=== PATIENT | male | born 1930 | race Caucasian/White ===

== ENCOUNTER 2019-12-20 17:28 | Observation (INO) | payer MEDICARE ==
[~2019-12-20 17:28] MED LIST: Iopamidol-370 76% 500 ML 1 ML ONE
--- NOTE | 2019-12-20 19:00 | RAD ---
Portable frontal chest radiograph: 12/20/2019 COMPARISON: None HISTORY: Vision problems FINDINGS: Lungs are clear. Heart and mediastinal contours appear within normal limits. IMPRESSION: No acute findings.
[2019-12-20 19:04] LABS: #Basophils 0.1 thou/uL (0.0-0.2); #Eosinphils 0.1 thou/uL (0.0-0.7); #Monocytes 0.6 thou/uL (0.11-0.59); #Neutrophils 5.7 thou/uL (1.40-6.50); %Basophils 0.8 % (0.0-1.0); %Eosinophils 0.7 % (0.0-10.0); %Lymphocytes 13.6 % (21.0-51.0); %Monocytes 8.4 % (0.0-10.0); %Neutrophils 76.5 % (42.0-75.0); Hemoglobin 16.3 g/dL (14.0-18.0); Mean Corpuscular Hemoglobin 33.3 pg (27.0-31.0); Mean Corpuscular Volume 97.8 fL (78.0-98.0); Mean Platelet Volume 8.7 fL (7.4-10.4); Platelet Count 168 thou/uL (130-400); RBC Distribution Width 11.8 % (11.5-14.5); Red Blood Cell (RBC) Count 4.89 mill/uL (4.70-6.10); White Blood Cell (WBC) Count 7.5 thou/uL (4.8-10.8)
--- NOTE | 2019-12-20 19:10 | CT ---
Head CT without contrast 12/20/2019: Comparison: None HISTORY: Vision problems TECHNIQUE: Axial CT imaging at 5 mm intervals from vertex through skull base without contrast FINDINGS: The visualized paranasal sinuses and mastoid air cells demonstrate mild mucosal thickening of the left maxillary sinus. No displaced calvarial fracture. Mild diffuse cerebral volume loss. No intracranial hemorrhage, midline shift, or mass effect. IMPRESSION: No acute findings.
[2019-12-20 19:28] LABS: ALT (SGPT) 22 U/L (8-55); AST (SGOT) 24 U/L (5-34); Albumin 4.5 g/dL (3.4-4.8); Alkaline Phosphatase 67 U/L (40-110); Anion Gap 11 mmol/L (10-20); BUN (Urea Nitrogen) 17 mg/dL (8.4-25.7); Bilirubin, Total 0.5 mg/dL (0.2-1.2); Calc. Creatinine Clearance 0 mL/min (70-130); Calcium 9.3 mg/dL (7.8-10.44); Carbon Dioxide 27 mmol/L (23-31); Chloride 105 mmol/L (98-107); Estimated GFR-MDRD 55; Globulin 2.3 g/dL (2.4-3.5); Glucose 130 mg/dL (83-110); Protein, Total 6.8 g/dL (5.8-8.1); Sodium 139 mmol/L (136-145)
[2019-12-20] MEDS ORDERED: Aspirin 325 MG TAB ONE (22:29)
--- NOTE | 2019-12-20 23:12 | CT ---
CT ANGIOGRAM HEAD CT ANGIOGRAM NECK: Date: 12-20-2019 Comparison: None History: Vision loss on the left one day ago. Technique: Axial CT imaging at 2.5 mm intervals from vertex through lung apices with IV contrast usin g CT angiogram protocol. Coronal and sagittal 3D reformatted imaging obtained. FINDINGS: The visualized lung apices are unremarkable. There is partial opacification of the maxillary sinus on the left. The retro antral fat and paraphary ngeal fat is clear bilaterally. The parotid and submandibular glands appear grossly unremarkable. Assessment of the tonsillar pillars, epiglottis, preepiglottic fat, hyoid bone, thyroid cartilage, cr icoid cartilage and thyroid gland are unremarkable. Original of innominate artery, left common carotid artery, left subclavian artery, right common carot id artery, and right subclavian artery unremarkable. Bilateral vertebral arteries are patent. There i s atherosclerotic calcification at the origin of the left vertebral artery with probable mild associa david stenosis. Bilateral vertebral arteries are patent. No hemodynamically significant stenosis is seen involving the internal carotid artery or the common c arotid artery on either side on the basis of NASCET criteria. There is mild calcified plaque within the distal CCA and proximal ICA on the right. No lymphadenopathy is apparent within the neck. The basilar artery is patent. Branches of the basilar artery appear grossly unremarkable with no sacu lar aneurysm, high grade stenosis, or vascular occlusion seen involving the posterior circulation. The ICA bifurcation, the MCA bifurcation, the A1 segment, the M1 segment, the distal PAOLO branches and the distal MCA branches appear unremarkable. No sacular aneurysm, high grade stenosis, or vascular o cclusion is seen involving the anterior circulation. Review of the osseous structures demonstrates degenerative change at the atlantoaxial interspace and C6-7 level. No worrisome lytic or blastic bone lesion. IMPRESSION: 1. No hemodynamically significant stenosis on the basis of NASCET criteria noted within the neck. 2. No central arterial occlusion, high grade stenosis, or sacular aneurysm noted on CT angiography of the head. If there is clinical concern for acute infarction, follow up brain MRI is advised. POS: OFF
[2019-12-20 23:39] VITALS: BMI 25.5
[2019-12-21] MEDS ORDERED: hydrALAZINE 20 MG/ML VIAL SLOW IVP PRN (00:18)
[2019-12-21] MEDS ORDERED: Acetaminophen 325 MG TAB PO PRN (00:22)
--- NOTE | 2019-12-21 00:49 | PDOC.HHP ---
Hospitalist HPI - History of Present Illness Acute, left vision loss, resolved on arrival History of Present Illness: PCP: Dr. Hernández The patient is a 89/M with PMH significant for hyperlipidemia, hypothyroidism that presents to ER for above complaint. The patient reports having painless, vision loss to his left eye yesterday, while reading. Describes as "fuzzy" or blurry vision, lasting approximately 2 hours, exacerbated and relieved by nothing. Denies any floaters, headaches, jaw claudication, fever, heart palpitations, slurred speech, dysphagia or extremity weakness. This afternoon, he went to his ophthalmolgist, Dr. Alanis, who performed full eye exam, which the patient says was benign. Dr. Alanis recommended that he go to the ER to rule out stroke. For this reason, the patient came to the ER. ED Course: VS stable CT brain - no acute findings CTA head and neck - unremarkable CXR no acute cardiopulmonary process Trop negative Given: ASA 324mg 1L NS Hospitalist ROS - Review of Systems Constitutional: denies: fever, chills, sweats, weakness, malaise, other Eyes: reports: vision change (resolved prior to arrival). denies: pain, conjunctivae inflammation, eyelid inflammation, redness ENT: denies: ear pain, ear discharge, nose pain, nose discharge, nose congestion , mouth pain, mouth swelling, throat pain, throat swelling, other Respiratory: denies: cough, dry, shortness of breath, hemoptysis, SOB with excertion, pleuritic pain, sputum, wheezing, other Cardiovascular: denies: chest pain, palpitations, orthopnea, paroxysmal noc. dyspnea, edema, light headedness, other Gastrointestinal: denies: nausea, vomiting, abdominal pain, diarrhea, constipation, melena, hematochezia, other Genitourinary: denies: dysuria, frequency, incontinence, hematuria, retention, other Musculoskeletal: denies: neck pain, shoulder pain, arm pain, back pain, hand pain, leg pain, foot pain, other Skin: denies: rash, lesions, rahat, bruising, other Neurological: denies: weakness, numbness, incoordination, change in speech, confusion, seizures, other Hospitalist History - Past Medical History Source: patient Cardiac: reports: Hyperlipidemia Gastrointestinal: reports: GERD Endocrine: reports: Hypothyroidism - Past Surgical History Past Surgical History: reports: Appendectomy, Hernia Repair - Family History Family History: reports: no pertinent history - Social History Smoking Status: Never smoker Alcohol: reports: None Drugs: reports: none Living Situation: With Family Activity level: independent ambulation - Exam General Appearance: NAD, awake alert Eye: PERRL, anicteric sclera ENT: normocephalic atraumatic, no oropharyngeal lesions, moist mucosa Neck: supple, no thyromegaly, no lymphadenopathy, no carotid bruit Heart: RRR, no murmur, no gallops, no rubs, normal peripheral pulses Respiratory: CTAB, no wheezes, no rales, no ronchi Gastrointestinal: soft, non-tender, non-distended, normal bowel sounds, no guarding, no rigidity Extremities: no cyanosis, no clubbing, no edema Skin: no lesions, no rashes Neurological: cranial nerve grossly intact, no focal deficits Musculoskeletal: normal tone, normal strength Psychiatric: normal affect, A&O x 3 Hospitalist Results - Labs Result Diagrams: 12/20/19 18:58 12/20/19 18:58 Lab results: WBC 7.5 thou/uL (4.8-10.8) 12/20/19 18:58 Hgb 16.3 g/dL (14.0-18.0) 12/20/19 18:58 Hct 47.8 % (42.0-52.0) 12/20/19 18:58 MCV 97.8 fL (78.0-98.0) 12/20/19 18:58 Plt Count 168 thou/uL (130-400) 12/20/19 18:58 Neutrophils % 76.5 % (42.0-75.0) H 12/20/19 18:58 Sodium 139 mmol/L (136-145) 12/20/19 18:58 Potassium 4.0 mmol/L (3.5-5.1) 12/20/19 18:58 Chloride 105 mmol/L (98-107) 12/20/19 18:58 Carbon Dioxide 27 mmol/L (23-31) 12/20/19 18:58 BUN 17 mg/dL (8.4-25.7) 12/20/19 18:58 Creatinine 1.24 mg/dL (0.7-1.3) 12/20/19 18:58 Glucose 130 mg/dL (83-110) H 12/20/19 18:58 Calcium 9.3 mg/dL (7.8-10.44) 12/20/19 18:58 Total Bilirubin 0.5 mg/dL (0.2-1.2) 12/20/19 18:58 AST 24 U/L (5-34) 12/20/19 18:58 ALT 22 U/L (8-55) 12/20/19 18:58 Alkaline Phosphatase 67 U/L (40-110) 12/20/19 18:58 Troponin I Less than 0.010 ng/mL (< 0.028) 12/20/19 18:58 Serum Total Protein 6.8 g/dL (5.8-8.1) 12/20/19 18:58 Albumin 4.5 g/dL (3.4-4.8) 12/20/19 18:58 - Radiology Interpretation Chest x-ray Status: report reviewed by me CT scan - head Status: report reviewed by me Hospitalist H&P A/P - Problem (1) Transient visual loss, left eye Code(s): H53.122 - TRANSIENT VISUAL LOSS, LEFT EYE Status: Acute Assessment and Plan: Admit to observation unit site monitor MRI and Echocardiogram Consult neurology Continue ASA Check ESR, folate and B12 Consult PT/OT BMP and CBC and lipid panel in am (2) HLD (hyperlipidemia) Code(s): E78.5 - HYPERLIPIDEMIA, UNSPECIFIED Status: Acute Assessment and Plan: Restart Lipitor lipid panel in am (3) Hypothyroid Code(s): E03.9 - HYPOTHYROIDISM, UNSPECIFIED Status: Acute Assessment and Plan: Restart levothyroxine. Check TSH in am (4) GERD (gastroesophageal reflux disease) Code(s): K21.9 - GASTRO-ESOPHAGEAL REFLUX DISEASE WITHOUT ESOPHAGITIS Status: Acute Assessment and Plan: Restart Nexium Tums prn
[2019-12-21 04:43] LABS: #Eosinphils 0.1 thou/uL (0.0-0.7); #Lymphocytes 1.5 thou/uL (1.20-3.40); #Monocytes 0.7 thou/uL (0.11-0.59); #Neutrophils 4.3 thou/uL (1.40-6.50); %Basophils 0.6 % (0.0-1.0); %Eosinophils 1.2 % (0.0-10.0); %Lymphocytes 22.9 % (21.0-51.0); %Monocytes 10.6 % (0.0-10.0); %Neutrophils 64.6 % (42.0-75.0); Hemoglobin 14.4 g/dL (14.0-18.0); Mean Corpuscular HGB CONC 32.7 g/dL (32.0-36.0); Mean Corpuscular Volume 97.7 fL (78.0-98.0); Mean Platelet Volume 8.6 fL (7.4-10.4); Platelet Count 153 thou/uL (130-400); RBC Distribution Width 11.8 % (11.5-14.5); Red Blood Cell (RBC) Count 4.52 mill/uL (4.70-6.10); White Blood Cell (WBC) Count 6.7 thou/uL (4.8-10.8)
[2019-12-21 05:04] LABS: Anion Gap 11 mmol/L (10-20); BUN (Urea Nitrogen) 16 mg/dL (8.4-25.7); Calc. Creatinine Clearance 53 mL/min (70-130); Calcium 8.6 mg/dL (7.8-10.44); Carbon Dioxide 25 mmol/L (23-31); Cardiac Risk 2.9 (Less than 4.5); Chloride 107 mmol/L (98-107); Estimated GFR-MDRD 68; Glucose 80 mg/dL (83-110); Phosphorus 2.9 mg/dL (2.3-4.7); Potassium 4.1 mmol/L (3.5-5.1); Sodium 139 mmol/L (136-145)
[2019-12-21 05:31] LABS: Thyroid Stimulating Hormone 0.8868 uIU/mL (0.35-4.94)
[2019-12-21] MEDS ORDERED: Levothyroxine Sodium 75 MCG TAB PO SCH (06:00)
[2019-12-21] MEDS ORDERED: Atorvastatin Calcium 40 MG TAB PO SCH (09:00)
[2019-12-21] MEDS ORDERED: Aspirin 325 mg Enteric Coated Tablet PO SCH (09:00)
--- NOTE | 2019-12-21 09:40 | MRI ---
MRI of thebrain: 12/21/2019 COMPARISON:None available HISTORY:Vision problems, assess for stroke TECHNIQUE: Multiplanar multisequence MR imaging of thebrain without contrast Findings:The diffusion weighted imaging demonstrates no evidence for acute infarction. The axial gradient echo imaging demonstrates no evidence for intracranial hemorrhage. There are a few scattered foci of increased T2/FLAIR signal within the periventricular and deep white matter, suggesting a mild degree of small vessel disease. Arterial flow voids at the axial level of the skull base appear grossly unremarkable on the T2-weight ed imaging. There is partial opacification of the maxillary sinus on the left. Regional bone marrow signal intensity appears grossly unremarkable. IMPRESSION:No evidence for acute infarction.
[2019-12-21 11:43] VITALS: BP 152/70; TEMP 99.7
--- NOTE | 2019-12-21 14:35 | DIS ---
DATE OF ADMISSION: 12/20/2019 DATE OF DISCHARGE: 12/21/2019 PRIMARY CARE PROVIDER: Nirmal Hernández MD DISPOSITION: Discharged home. FINAL DIAGNOSES: Transient visual loss, left eye; dyslipidemia; hypothyroidism; and gastroesophageal reflux disease. MEDICATIONS: 1. Aspirin 81 mg a day. 2. Atorvastatin 40 mg a day. 3. Nexium 20 mg a day. 4. Levothyroxine 75 mcg a day. ALLERGIES: CODEINE. CODE STATUS: Full. PENDING AT THE TIME OF DISCHARGE: Nothing. DIET: Heart-healthy. HOSPITAL COURSE: The patient was admitted for evaluation after having a transient episode of loss of vision on the left, either a left homonymous hemianopsia or loss in his left eye. By the time he went to see his metal tile setter, his symptoms resolved. He had normal visual mattson. [employer] told him to go to the ER to be evaluated for a stroke. Here, he was asymptomatic with normal visual field. CT angiogram of the head and neck; no hemodynamically significant stenosis. No central artery occlusion, high-grade stenosis, or saccular aneurysm noted on CT angiography of the head. A brain MRI followup showed no evidence of CVA. Echocardiogram, which was done, showed an EF 55% to 60% with some diastolic dysfunction. Laboratory done; CBC was unremarkable. Comprehensive metabolic profile was also unremarkable except for initial blood sugar of 130 with a followup of 80. Cholesterol studies; cholesterol 110, LDL 57, HDL 38. Heart risk 2.9. Folate 18.2, B12 of 435. TSH 0.89. The patient is neurologically intact. No consultations were done. No procedures were done. He is being told to take the baby aspirin once a day, to see Dr. Hernández in followup in 3 days. Job ID: [id number]
== END 2019-12-21 14:41 | disposition home or self-care (01) ==
LOC: ERS 17:28 → 2SW 22:37
PROVIDERS: ADMIT Internal Medicine; ATTEND Internal Medicine
DX: H53.122 Transient visual loss, left eye (principal); E78.5 Hyperlipidemia, unspecified; E03.9 Hypothyroidism, unspecified; K21.9 Gastro-esophageal reflux disease without esophagitis; Z90.49 Acquired absence of other specified parts of digestive tract; Z98.890 Other specified postprocedural states; Z79.82 Long term (current) use of aspirin; Z79.899 Other long term (current) drug therapy; Z88.5 Allergy status to narcotic agent
CPT/HCPCS: 70450; 70496; 70498; 70551; 71045; 80048; 80053; 80061; 82607; 82746; 83735; 84100; 84443; 84484; 85025 ×2; 85652; 93005; 93306; 94760; 96360; 97139; 99285; G0378 ×3; 36415; Q9967